=== PATIENT | male | born 1970 | race Caucasian/White ===

== ENCOUNTER 2018-07-12 07:39 | Observation (INO) | payer OTHER ==
[2018-07-12] MEDS ORDERED: LORazepam 2 MG/ML INJ IVP ONE (07:56)
--- NOTE | 2018-07-12 07:56 | EDPHY ---
H & P Stated Complaint: "I woke up with chest pain" Time Seen by Provider: 07/12/18 07:40 HPI/ROS: CHIEF COMPLAINT: Chest pain HISTORY OF PRESENT ILLNESS: The patient presents the ED with complaints of generalized anterior chest pain that was present when he woke up today. The patient reports he felt fine yesterday. He has felt somewhat "shaky" over the past several days. The patient has a history of hypertension and hyperglycemia. The patient reportedly recently traveled here from [place] on bus for a job. 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 He is not anticoagulated. He denies pleuritic chest pain. He complains of mild dyspnea. The patient denies fever, cough or congestion. He denies any history of exertional chest pain or shortness of breath. He did have an episode of chest pain which prompted hospitalization within the past year. At that point time he does not believe he had a stress test. He reportedly was kept in the hospital overnight and told that he was experiencing reflux. REVIEW OF SYSTEMS: A comprehensive 10 point review of systems is otherwise negative aside from elements mentioned in the history of present illness. Source: Patient Exam Limitations: No limitations - Personal History Current Tetanus/Diphtheria Vaccine: Yes Current Tetanus Diphtheria and Acellular Pertussis (TDAP): Yes - Medical/Surgical History Hx Asthma: No Hx Chronic Respiratory Disease: No Hx Diabetes: Yes Hx Cardiac Disease: Yes Hx Renal Disease: No Hx Cirrhosis: No Hx Alcoholism: No Hx HIV/AIDS: No Hx Splenectomy or Spleen Trauma: No Other PMH: htn, DM, anxiety, depression, rt hand sx - Social History Smoking Status: Never smoked - Physical Exam Exam: General Appearance: Alert, no distress Eyes: Pupils equal and round no pallor or injection ENT, Mouth: Mucous membranes moist Respiratory: There are no retractions, lungs are clear to auscultation Cardiovascular: Regular rate and rhythm Gastrointestinal: Abdomen is soft and nontender, no masses, bowel sounds normal Neurological: A&O, normal motor function, normal sensory exam, normal cranial nerves Skin: Warm and dry, no rashes Musculoskeletal: Neck is supple nontender Extremities: symmetrical, full range of motion Psychiatric: Patient is oriented X 3, there is no agitation Constitutional: Initial Vital Signs Temperature (C) 36.4 C 07/12/18 07:39 Heart Rate 101 H 07/12/18 07:39 Respiratory Rate 16 07/12/18 07:39 Blood Pressure 172/99 H 07/12/18 07:39 O2 Sat (%) 97 07/12/18 07:39 O2 Delivery Mode Nasal Cannula O2 (L/minute) 2 Allergies/Adverse Reactions: No Known Allergies Allergy (Unverified 07/12/18 07:44) Home Medications: Medication Instructions Recorded Flexeril 10 mg Prepack#3 07/12/18 Hydroxyzine HCl 07/12/18 Lisinopril 07/12/18 Metformin HCl 07/12/18 Sertraline HCl 07/12/18 Medical Decision Making - Diagnostics EKG Interpretation: EKG: Complete interpretation has been separately recorded in the [facility] archive. Summary impression: Sinus tachycardia, rate 101 Imaging Results: Imaging Impressions Chest X-Ray 07/12/18 07:54 Impression: Clear lungs. No acute process. CT angiogram of the chest: Images reviewed by myself and discussed with radiologist Dr. Yee. Impression: negative for PE, dissection or other explanation for chest pain. ED Course/Re-evaluation: The patient presents to the ED with complaints of chest pain that began today when he woke up. The patient does have a few risk factors for coronary artery disease. The patient denies any history of exertional chest pain or shortness of breath. It does seem as if there is a component of anxiety with the patient' s symptoms. The patient's initial EKG demonstrates no evidence of ischemia. His initial troponin is normal. The patient's D-dimer test is negative which I feel adequately excludes pulmonary embolism. The patient did receive 1 mg of IV Ativan in the emergency department. The patient had 2 negative troponins in the emergency department. I discussed the case with Cardiology with hopes to simply perform a treadmill stress test.. Because the patient is still symptomatic they would like him admitted to the hospital for further evaluation, CT angiography of the chest and a formal rule out. Consultation is made with the hospitalist service. I spoke with Lola from the hospitalist service. Although the patient does have a negative D-dimer a CT pulmonary angiogram of the chest will be ordered to fully exclude the possibility of a thromboembolic event as an explanation for his chest pain shortness of breath. Patient will be admitted by Dr. Tra Babin. Cardiology is aware of the patient's admission to the hospital. Differential Diagnosis: Differential diagnosis considered includes acute coronary syndrome, anxiety, pneumonia, costochondritis, pulmonary embolism, congestive heart failure, arrhythmia - Data Points Laboratory Results: Laboratory Results 07/12/18 07:51 07/12/18 07:51 07/12/18 07/12/18 07/12/18 09:52 07:55 07:51 WBC RBC Hgb Hct MCV MCH MCHC RDW Plt Count MPV Neut % (Auto) Lymph % (Auto) Stevens % (Auto) Eos % (Auto) Baso % (Auto) Nucleat RBC Rel Count Absolute Neuts (auto) Absolute Lymphs (auto) Absolute Monos (auto) Absolute Eos (auto) Absolute Basos (auto) Absolute Nucleated RBC Immature Gran % Immature Gran # D-Dimer Sodium 137 mEq/L mEq/L (135-145) Potassium 4.3 mEq/L mEq/L (3.5-5.2) Chloride 101 mEq/L mEq/L (97-110) Carbon Dioxide 23 mEq/l mEq/l (22-31) Anion Gap 13 mEq/L mEq/L (6-14) BUN 15 mg/dL mg/dL (7-23) Creatinine 0.9 mg/dL mg/dL (0.7-1.3) Estimated GFR > 60 Glucose 214 mg/dL H mg/dL (70-100) Calcium 9.2 mg/dL mg/dL (8.5-10.4) POC Troponin I 0.00 ng/mL ng/mL 0.00 ng/mL ng/mL (0.00-0.08) (0.00-0.08) NT-Pro-B Natriuret Pep 31 pg/mL pg/mL (0-125) 07/12/18 07/12/18 07:51 07:51 WBC 5.06 10^3/uL 10^3/uL (3.80-9.50) RBC 5.43 10^6/uL 10^6/uL (4.40-6.38) Hgb 14.7 g/dL g/dL (13.7-17.5) Hct 44.1 % % (40.0-51.0) MCV 81.2 fL L fL (81.5-99.8) MCH 27.1 pg L pg (27.9-34.1) MCHC 33.3 g/dL g/dL (32.4-36.7) RDW 12.4 % % (11.5-15.2) Plt Count 238 10^3/uL 10^3/uL (150-400) MPV 9.1 fL fL (8.7-11.7) Neut % (Auto) 46.0 % % (39.3-74.2) Lymph % (Auto) 41.7 % % (15.0-45.0) Stevens % (Auto) 9.1 % % (4.5-13.0) Eos % (Auto) 2.6 % % (0.6-7.6) Baso % (Auto) 0.4 % % (0.3-1.7) Nucleat RBC Rel Count 0.0 % % (0.0-0.2) Absolute Neuts (auto) 2.33 10^3/uL 10^3/uL (1.70-6.50) Absolute Lymphs (auto) 2.11 10^3/uL 10^3/uL (1.00-3.00) Absolute Monos (auto) 0.46 10^3/uL 10^3/uL (0.30-0.80) Absolute Eos (auto) 0.13 10^3/uL 10^3/uL (0.03-0.40) Absolute Basos (auto) 0.02 10^3/uL 10^3/uL (0.02-0.10) Absolute Nucleated RBC 0.00 10^3/uL 10^3/uL (0-0.01) Immature Gran % 0.2 % % (0.0-1.1) Immature Gran # 0.01 10^3/uL 10^3/uL (0.00-0.10) D-Dimer 0.41 ug/mLFEU ug/mLFEU (0.00-0.50) Sodium Potassium Chloride Carbon Dioxide Anion Gap BUN Creatinine Estimated GFR Glucose Calcium POC Troponin I NT-Pro-B Natriuret Pep Medications Given: Discontinued Medications Lorazepam (Ativan Injection) 1 mg IVP EDNOW ONE Stop: 07/12/18 07:57 Last Admin: 07/12/18 08:07 Dose: 1 mg Point of Care Test Results: Chemistry 07/12/18 07/12/18 09:52 07:55 POC Troponin I 0.00 ng/mL ng/mL 0.00 ng/mL ng/mL (0.00-0.08) (0.00-0.08) Departure - Departure Disposition: [facility] Inpatient Acute Clinical Impression: Chest pain Condition: Good
[2018-07-12 08:18] LABS: PLATELET COUNT 238 10^3/uL (150-400)
--- NOTE | 2018-07-12 09:29 | CPEKG ---
Test Reason : OPEN Blood Pressure : / mmHG Vent. Rate : 101 BPM Atrial Rate : 101 BPM P-R Int : 183 ms QRS Dur : 093 ms QT Int : 350 ms P-R-T Axes : 027 -11 038 degrees QTc Int : 454 ms Sinus tachycardia Confirmed by Gonzalez Acosta ([id number]) on 07/12/2018 9:28:37 AM Referred By: Gonzalez Acosta Confirmed By:Gonzalez Acosta
[2018-07-12] MEDS ORDERED: IOPAMIDOL (ISOVUE 370) 100 ML BTL IV ONE (11:21)
[2018-07-12] MEDS ORDERED: DICLOFENAC SODIUM 1% 100 GM GEL TP PRN (13:48)
[2018-07-12] MEDS ORDERED: hydrOXYzine HCL 50 MG TAB PO PRN (13:48)
[2018-07-12] MEDS ORDERED: ONDANSETRON DISINTEGRATING 4 MG TAB PO PRN (14:08)
[2018-07-12] MEDS ORDERED: ONDANSETRON 4 MG/2 ML VIAL IVP PRN (14:08)
[2018-07-12] MEDS ORDERED: ACETAMINOPHEN 325 MG TAB PO PRN (14:08)
--- NOTE | 2018-07-12 14:40 | GHP ---
[f rep st] HISTORY AND PHYSICAL DATE OF ADMISSION: 07/12/2018 Mr. Leung is a 48-year-old gentleman with a history of VT, diabetes, and hypertension, presents to the ER this morning with some chest pain that radiated to his left arm. It happened upon awakeni ng. He is new to [place]. He came here from [place] a week ago. 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 He has noticed some diffuse muscle aches without a viral prodrome, as well as this aforementioned pain this morning. He is not dyspneic. He does not have a previous history of exertional angina. He has a history of VTE with a left lower extremity DV T and recently took the bus here from [place]. He notes some swelling in his left leg that resolved with exercises while he was in [place]. He has not had sputum, hemoptysis, fever, chills. He does not have a history of exertional-type joe na. His father of a heart attack in his 70s. It is not known when his first heart attack was. REVIEW OF SYSTEMS: Complete 10-point review of systems conducted, negative except as noted in the HP I. ALLERGIES: No known drug allergies. HOME MEDICATIONS: Flonase, aspirin, Flexeril, diclofenac, hydroxyzine, lisinopril, meloxicam, metfor min, and sertraline. SOCIAL HISTORY: He is from [facility], does not drink alcohol to excess, nonsmoker. FAMILY HISTORY: As in the HPI. PHYSICAL EXAMINATION: VITAL SIGNS: Temp 36.6, blood pressure 115/90, pulse 72, breathing 16 times a minute, 97% on 2 L. GENERAL: No acute distress, lying flat. HEENT: Sclerae anicteric. Oropharyn x clear. Mucous membranes are moist. NECK: Supple. No lymphadenopathy or JVD. LUNGS: Clear to a uscultation bilaterally. HEART: S1, S2. ABDOMEN: Soft, nontender, nondistended. LOWER EXTREMITIE S: Without edema. Calves nontender. SKIN: Without rash. NEUROLOGIC: Exam is nonfocal. LABS: White count 5, hematocrit 44, platelets are 230,000. D-dimer is negative at 0.41. Chem-7 is normal other than glucose of 214. BNP is 31. [id number] troponins are 0.00 x2. These are spaced out [address] pulmonary embolism protocol, images reviewed, interpreted by me, shows no pul monary embolism, hepatic steatosis, no lung disease. EKG interpreted by me, sinus at 101 with normal axis and intervals. No ST or T-wave changes. I discussed the case with Dr. Chan Acosta C ardiology. ASSESSMENT AND PLAN: 48-year-old man with chest pain. 1. Chest pain: He has risk factors for coronary artery disease, age and hypertension and diabetes. It is not clear that he actually has a family history. His EKG is normal. He will go on a treadmil l this afternoon. 2. Pulmonary embolism has been effectively ruled out. 3. Dyspnea: I suspect if the above workup is negative, may be secondary to deconditioning plus new travel to altitude. He has clear lungs, without evidence of significant pulmonary disease. He is no t wheezing on exam. 4. History of venous thromboembolism: He has had a negative evaluation here. Negative D-dimer effe ctively rules out deep venous thrombosis, as does the CT PE rule out pulmonary embolism. 5. Disposition: Observation status. He can be discharged if his treadmill is negative. /[id number]/MODL
[2018-07-12 15:13] VITALS: BP 161/98
--- NOTE | 2018-07-12 15:41 | ASMTLACE ---
LACE Length of stay for Answers: Less than 1 day current admission Comorbidities - select Answers: Diabetes (uncontrolled or all that apply controlled) Other Notes: HTN # of Emergency department Answers: 1-2 visits in the last 6 months Social determinants Answers: Mental health diagnosis (anxiety, depression, pers onality disorders, etc.) Score: 6 Date Signed: 07/12/2018 03:40 PM Electronically Signed By:Adrianne Scott RN
--- NOTE | 2018-07-12 15:41 | ASMTCMCOM ---
CM Note CM Note Notes: Patient admitted via ED with c/o chest pain. No overt medical findings. Medically cleared for discharge to home. No needs identified. CM available should needs arise. Plan: Dc to home Date Signed: 07/12/2018 03:40 PM Electronically Signed By:Adrianne Scott RN
--- NOTE | 2018-07-12 15:45 | GDS ---
[f rep st] DISCHARGE SUMMARY DISCHARGE DIAGNOSES: 1. Chest pain. 2. Hypertension. 3. Diabetes. 4. Anxiety. Please see admission history and physical by Dr. Justo Babin. The patient presented with chest pain. He has a history of DVT. He had a normal D-dimer and a negative CTA. He had an exercise treadmill showing no EKG changes. He had serial negative troponins. He is discharged home. He is given refi lls for lisinopril, hydroxyzine, and Flexeril. /[id number]/MODL
--- NOTE | 2018-07-12 16:44 | CPR ---
[f rep st] NONINVASIVE CARDIAC PROCEDURE REPORT DATE OF PROCEDURE: 07/12/2018 PROCEDURE: Exercise treadmill test. INDICATION: The patient is a 48-year-old male who awoke with shortness of breath and chest discomfor t this morning. His risk factors for coronary artery disease include hypertension, diabetes and a fa deena history of coronary artery disease. His father had a fatal WA at the age of 72. PROCEDURE: Consent was obtained and the patient was placed on continuous telemetry. His resting EKG revealed normal sinus rhythm with isolated T-wave inversion in lead III. He walked on the treadmill for 7 minutes and 23 seconds, but complained of shortness of breath at approximately 2 minutes into exercise. This persisted throughout the study and ultimately the exercise portion of the study was d iscontinued secondary to shortness of breath. He was able to reach his target heart rate of 147 beat s per minute. The speed of the treadmill was left in the second stage. He remained in normal sinus rhythm without any ST-T wave changes to suggest ischemia. His blood pressure at rest was 142/100 and peaked at 170/84. He remained hypertensive in the recovery phase. Eight minutes into recovery, his blood pressure was down to 146/102. PLAN: [place] treadmill score of +7, which is a low-risk study. I did recommend if his symptoms of sh ortness of breath and chest discomfort do not improve, he should seek further medical treatment and c onsider a more sophisticated study. /[id number]/MODL
[2018-07-12] MEDS ORDERED: CYCLOBENZAPRINE 10 MG TAB PO SCH (21:00)
[2018-07-13] MEDS ORDERED: ASPIRIN 81 MG CHEWABLE TAB PO SCH (09:00)
[2018-07-13] MEDS ORDERED: LISINOPRIL 10 MG TAB PO SCH (09:00)
[2018-07-13] MEDS ORDERED: SERTRALINE HCL 100 MG TAB PO SCH (09:00)
[2018-07-14] MEDS ORDERED: metFORMIN HCL 500 MG TAB PO SCH (18:00)
== END 2018-07-12 17:57 | disposition home or self-care (01) ==
LOC: F2W 12:35
PROVIDERS: ADMIT Internal Medicine; ATTEND Internal Medicine
DX: R07.89 Other chest pain (principal); M79.662 Pain in left lower leg; I10 Essential (primary) hypertension; E11.9 Type 2 diabetes mellitus without complications; F41.9 Anxiety disorder, unspecified; Z86.718 Personal history of other venous thrombosis and embolism; Z82.49 Family history of ischemic heart disease and other diseases of the circulatory system
CPT/HCPCS: 71046; 71275; 93005; 93017; 96374; 99285; G0378; 84484-ER; J2060; Q9967

== ENCOUNTER 2018-07-26 22:20 | Emergency (ER) | payer OTHER | END 2018-07-27 06:50 ==

== ENCOUNTER 2018-07-31 07:09 | Emergency (ER) | payer OTHER | END 2018-07-31 09:42 | disposition home or self-care (01) ==